=== PATIENT | male | born 2000 | race Caucasian/White ===

== ENCOUNTER 2023-01-15 12:06 | Outpatient (CLI) | payer OTHER, SELFPAY ==
--- NOTE | 2023-01-15 12:25 | ECG_ITS ---
Measurements Intervals [place] Rate: 66 P: 39 VT: 167 QRS: 100 QRSD: 97 T: 51 QT: 373 QTc: 392 Interpretive Statements SINUS RHYTHM BORDERLINE RIGHT AXIS DEVIATION [QRS AXIS > 90] NO PREVIOUS ECG AVAILABLE FOR COMPARISON Electronically Signed On 01-15-2023 13:50:17 CDT by Silvia Subramanian M.D.
== END 2023-01-15 12:07 | disposition home or self-care (01) ==
PROVIDERS: PCP Family Medicine; Visit Provider Physician Assistant Medical
DX: R00.0 Tachycardia, unspecified (principal)
CPT/HCPCS: 93005

== ENCOUNTER 2023-02-18 10:08 | Emergency (ER) | payer OTHER, SELFPAY ==
[2023-02-18 10:18] VITALS: BP 139/73; PULSE 72; RESP 16; TEMP 36.2; O2SAT 99
--- NOTE | 2023-02-18 10:26 | ED.URI ---
HPI - URI/Sore Throat General Chief Complaint: Upper Respiratory Infection Stated Complaint: Headaches;Sore Throat;Stuffy Nose Source: patient and RN notes reviewed History of Present Illness HPI Narrative: 22-year-old male presents to urgent care with complaints sore throat, congestion forehead pressure, and headache. Patient states the symptoms started yesterday but woke up today with worsening symptoms. Patient reports bilateral ear pain. Patient denies any fevers, chills, vomiting, diarrhea, chest pain, or shortness of breath. Patient was seen by ENT 3 days ago where he is being referred to a [facility] specialist for his narrow turbinates. Pt was using Flonase a few weeks ago but nothing recently. Related Data Allergies Allergy/AdvReac Type Severity Reaction Status Date / Time No Known Allergies Allergy Verified 02/18/23 10:27 Review of Systems Review of Systems: Pertinent positives and pertinent negatives per HPI. PMFSH Past Medical History Medical History No known health problems Family History Family History Mother Healthy adult Thyroid disorder Grandparent Alcoholism Asthma Hypertension Depression Anxiety Heart disease Cerebrovascular accident Social History Social History Years smoked: 5 Smoking status: Never smoker Tobacco type: e-cigarettes/vaping Second hand tobacco smoke exposure: Yes Smoking end date: 07/21/22 Alcohol intake: current Drinks per week: 3 Alcohol use details: Beer Substance use: current Substance use type: marijuana Lack of Transportation: No Lack of Food: Never True Current Housing: Decline to Answer Concerned About Future Housing: No Difficulty Paying Gas/Electric Bills: No Difficulty Paying for Meds: No Currently Unemployed: No Education: High School Diploma/GED Difficulty w/ Childcare or Family Care: No Living arrangements: with friend(s) Occupation/Education: occupation Gender identity (if verbalized by the patient): Male Spiritual care concerns: No Agree to blood products: Yes Comments At the time of my signature, I reviewed and agree with the nursing past medical, surgical, social, and family history. There is no relevant family history pertinent to the patient complaint. Exam Narrative: GENERAL: This is a well-nourished, well-developed patient, in no apparent distress. HEAD: normocephalic, atraumatic. EYES: Sclera clear/white. Vision is grossly intact. EARS: External ears normal, auditory canals clear and without drainage, TMs normal without perforation. Hearing grossly intact. NOSE: External nose normal with no obvious nasal discharge, nares without redness, no rhinorrhea. THROAT: Mucous membranes moist, posterior pharynx clear. NECK: Neck supple, non-tender without lymphadenopathy, masses or thyromegaly. CARDIOVASCULAR: Regular rate and rhythm without murmurs, gallops, or rubs. RESPIRATORY: Clear to auscultation. Breath sounds equal bilaterally. No wheezes, rales, or rhonchi. NEURO: awake, alert, and oriented to person, place and time. There were no obvious focal neurologic abnormalities. EXTREMITIES: No clubbing, cyanosis, or edema. No joint tenderness, effusion, or edema noted. BACK: Nontender without deformity or crepitus. No flank tenderness. Course Course Level of Care: Express Care Visit Vital Signs Vital signs: Vital Signs Temperature 97.1 F L 02/18/23 10:18 Pulse Rate 72 02/18/23 10:18 Respiratory Rate 16 02/18/23 10:18 Blood Pressure 139/73 02/18/23 10:18 Pulse Oximetry 99 02/18/23 10:18 Temperature 97.1 F L 02/18/23 10:18 Pulse Rate 72 02/18/23 10:18 Respiratory Rate 16 02/18/23 10:18 Blood Pressure 139/73 02/18/23 10:18 Pulse Oximetry 99 02/18/23 10:18 Reviewed. M
== END 2023-02-18 10:44 | disposition home or self-care (01) ==
PROVIDERS: Emergency Provider Nurse Practitioner Family; PCP Family Medicine
DX: B34.9 Viral infection, unspecified (principal); J02.9 Acute pharyngitis, unspecified; F12.90 Cannabis use, unspecified, uncomplicated
CPT/HCPCS: 87081; 87147; 87880; 99213; G0463

== ENCOUNTER 2024-07-11 10:54 | Emergency (ER) | payer OTHER, SELFPAY ==
[2024-07-11 11:30] VITALS: BP 122/71; PULSE 86; RESP 16; TEMP 36.4; O2SAT 100
--- NOTE | 2024-07-11 12:46 | ED.GENADULT ---
HPI - General Adult General Chief complaint: Skin/Abscess/Foreign Body Stated complaint: Infected Hang Nail Source: patient Mode of arrival: ambulatory Limitations: no limitations History of Present Illness HPI narrative: Patient presents for evaluation of right index finger pain and swelling. Symptom onset three days ago. No precipitating injury. He initially had a hangnail in the affected area. He noted worsening swelling yesterday so attempted to drain the area at that time. He did not express much fluid from the area. Reports throbbing pain in the affected area. No loss of range of motion. He is not diabetic. He does not smoke. He is left-hand dominant. Related Data Allergies Allergy/AdvReac Type Severity Reaction Status Date / Time No Known Allergies Allergy Verified 07/11/24 12:07 Review of Systems Review of Systems: CONSTITUTIONAL: Denies fever, chills, or sweats. EYES: Denies visual changes, redness, or discharge. ENT: Denies rhinorrhea, congestion, sore throat, or otalgia. CARDIOVASCULAR: Denies chest pain, palpitations, or edema. RESPIRATORY: Denies cough or dyspnea. GASTROINTESTINAL: Denies abdominal pain, nausea, vomiting, or diarrhea. GENITOURINARY: Denies dysuria or hematuria. SKIN: Reports redness to the skin surrounding the nail plate of the right index finger. MUSCULOSKELETAL:Reports pain in right index finger. Denies back pain or other joint pain NEUROLOGIC: Denies headache, numbness, dizziness, or weakness. PSYCHIATRIC: Denies anxiety or depression. FORMERLY [facility] Past Medical History Medical History No known health problems Surgical History Surgical History History of nasal surgery Family History Family History Mother Healthy adult Thyroid disorder Grandparent Alcoholism Asthma Hypertension Depression Anxiety Heart disease Cerebrovascular accident Social History Social History Second hand tobacco smoke exposure: Yes Smoking end date: 07/21/22 Alcohol intake: current Drinks per week: 3 Alcohol use details: Beer Substance use: current Substance use type: marijuana Lack of Transportation: No Lack of Food: Never True Current Housing: Decline to Answer Concerned About Future Housing: No Difficulty Paying Gas/Electric Bills: No Difficulty Paying for Meds: No Currently Unemployed: No Education: High School Diploma/GED Difficulty w/ Childcare or Family Care: No Living arrangements: with friend(s) Occupation/Education: occupation Gender identity (if verbalized by the patient): Male Spiritual care concerns: No Agree to blood products: Yes Exam Narrative: GENERAL: Well-appearing, well-nourished, and in no acute distress. HEAD: Normocephalic, atraumatic. EYES: PERRLA and EOMI. ENT: Nares clear, no rhinorrhea or epistaxis. Mucous membranes moist. Oropharynx without tonsillar hypertrophy exudate or other lesions. Bilateral TMs pearly earl nonbulging NECK: Supple. No adenopathy or masses. No carotid bruits or JVD CHEST: Clear to auscultation. No respiratory distress. No wheezes rales or rhonchi HEART: Regular rate and rhythm. No murmur heard. Normal peripheral pulses. ABDOMEN: Soft, nontender, nondistended, normal active bowel sounds. EXTREMITIES: Normal range of motion. there is trace swelling noted to the distal phalanx of the right index finger with associated tenderness SKIN: there is erythema to the skin surrounding the nail plate of the right index finger NEURO: No focal deficits. Alert and oriented x3. PSYCH: Normal mood and affect. Course Course Emergency Course: this is a 23-year-old male who presented for evaluation of and treatment of a paronychia. We discussed risks versus benefits of attempted drainage. He would like to proceed with drainage. area was cleaned and drainage with 18 gauge needle was performed. There is no purulence but there was a small amount of sanguinous drainage. Wound culture obtained. Patient tolerated procedure well. Will discharge with Bactrim and cephalexin. He should perform warm soaks at home. Follow up with primary provider. Go to the ER for worsening symptoms. Pt in agreement with plan of care. Level of Care: Express Care Visit Vital Signs Vital signs: Vital Signs Temperature 36.4 C 07/11/24 11:30 Pulse Rate 86 07/11/24 11:30 Respiratory Rate 16 07/11/24 11:30 Blood Pressure 122/71 07/11/24 11:30 Pulse Oximetry 100 07/11/24 11:30 Temperature 36.4 C 07/11/24 11:30 Pulse Rate 86 07/11/24 11:30 Respiratory Rate 16 07/11/24 11:30 Blood Pressure 122/71 07/11/24 11:30 Pulse Oximetry 100 07/11/24 11:30 Procedures Abscess I/D other: Date of Incision: 07/11/24 Time of Incision: 12:52 Side (if applicable): right Local Anesthetic: lidocaine 1% Amount of anesthesia used (mL): 5 Technique: needle aspiration Amount of fluid expressed (mL): 4 Irrigation: No Packing used?: none Medical Decision Making Vital Signs Vital Signs: Vital Signs Temperature 36.4 C 07/11/24 11:30 Pulse Rate 86 07/11/24 11:30 Respiratory Rate 16 07/11/24 11:30 Blood Pressure 122/71 07/11/24 11:30 Pulse Oximetry 100 07/11/24 11:30 Temperature 36.4 C 07/11/24 11:30 Pulse Rate 86 07/11/24 11:30 Respiratory Rate 16 07/11/24 11:30 Blood Pressure 122/71 07/11/24 11:30 Pulse Oximetry 100 07/11/24 11:30 Discharge Plan Discharge Clinical Impression: Paronychia of right index finger Patient Disposition: Home, Self-Care Condition: Stable Instructions: Antibiotic Form, Paronychia (ED) Patient Language: Fijian Prescriptions: New sulfamethoxazole-trimethoprim [Bactrim DS] 800-160 mg tablet 1 tablet PO Q12H Qty: 20 0RF cephalexin 500 mg capsule 500 mg PO Q6H 10 Days Qty: 40 0RF Follow-up/Referrals: Marcus Otto MD [Physician] - Time of Disposition: 12:45
== END 2024-07-11 12:51 | disposition home or self-care (01) ==
PROVIDERS: Emergency Provider Nurse Practitioner
DX: L03.011 Cellulitis of right finger (principal); Z87.891 Personal history of nicotine dependence; F12.90 Cannabis use, unspecified, uncomplicated
CPT/HCPCS: 10160; 87070; 87075; 87205; 99213; G0463

== ENCOUNTER 2024-09-03 10:21 | Emergency (ER) | payer OTHER, SELFPAY ==
[2024-09-03 10:33] VITALS: BP 144/84; PULSE 94; RESP 16; TEMP 36.7; O2SAT 100
--- NOTE | 2024-09-03 10:39 | ED.URI ---
HPI - URI/Sore Throat General Chief Complaint: Upper Respiratory Infection Stated Complaint: SORE THROAT/SINUS CONGESTION/HEADACHE Time Seen by Provider: 09/03/24 10:39 Source: patient Mode of arrival: ambulatory Limitations: no limitations History of Present Illness HPI Narrative: 23-year-old male presents with complaint of cough, congestion, fatigue, body aches with fever for 4 days. Afebrile for the past 24 hours. Is feeling better. No chest pain or shortness of breath. Needs work note. All systems reviewed and negative except as noted above. Related Data Allergies Allergy/AdvReac Type Severity Reaction Status Date / Time No Known Allergies Allergy Verified 09/03/24 10:34 Review of Systems Review of Systems: CONSTITUTIONAL: Reports fever, chills, or sweats. EYES: Denies visual changes, redness, or discharge. ENT: Reports rhinorrhea, congestion, sore throat. Denies otalgia. CARDIOVASCULAR: Denies chest pain, palpitations, or edema. RESPIRATORY: Reports cough. Denies dyspnea. GASTROINTESTINAL: Denies abdominal pain, nausea, vomiting, or diarrhea. GENITOURINARY: Denies dysuria or hematuria. SKIN: Denies rash or itching. MUSCULOSKELETAL: Denies back pain, joint pain, or myalgia. NEUROLOGIC: Denies headache, numbness, or weakness. PSYCHIATRIC: Denies anxiety or depression. All other systems reviewed are negative, except as documented in HPI. FORMERLY [facility] Past Medical History Medical History No known health problems Surgical History Surgical History History of nasal surgery Family History Family History Mother Healthy adult Thyroid disorder Grandparent Alcoholism Asthma Hypertension Depression Anxiety Heart disease Cerebrovascular accident Social History Social History Second hand tobacco smoke exposure: Yes Smoking end date: 07/21/22 Alcohol intake: current Drinks per week: 3 Alcohol use details: Beer Substance use: current Substance use type: marijuana Lack of Transportation: No Lack of Food: Never True Current Housing: Decline to Answer Concerned About Future Housing: No Difficulty Paying Gas/Electric Bills: No Difficulty Paying for Meds: No Currently Unemployed: No Education: High School Diploma/GED Difficulty w/ Childcare or Family Care: No Living arrangements: with friend(s) Occupation/Education: occupation Gender identity (if verbalized by the patient): Male Spiritual care concerns: No Agree to blood products: Yes Comments At time of signature, agree with nursing past medical, surgical, social and family history. There is no relevant family history pertinent to the presenting complaint. Exam Narrative: GENERAL: This is a well-nourished, well-developed patient, in no apparent distress. HEAD: normocephalic, atraumatic. EYES: PERRL. Sclera clear/white. Vision is grossly intact. EARS: External ears normal, auditory canals clear and without drainage, TMs normal without perforation. Hearing grossly intact. NOSE: External nose normal with nasal drainage, mild congestion THROAT: Mucous membranes moist, posterior pharynx clear. NECK: Neck supple, non-tender without lymphadenopathy, masses or thyromegaly. CARDIOVASCULAR: Regular rate and rhythm without murmurs, gallops, or rubs. RESPIRATORY: Clear to auscultation. Breath sounds equal bilaterally. No wheezes, rales, or rhonchi. SKIN: warm, Dry, intact with no suspicious lesions or rash, good texture and turgor. NEURO: awake, alert, and oriented to person, place and time. There were no obvious focal neurologic abnormalities. EXTREMITIES: No joint tenderness, effusion, or edema noted. Course Course Level of Care: Express Care Visit Vital Signs Vital signs: Vital Signs Temperature 36.7 C 09/03/24 10:33 Pulse Rate 94 09/03/24 10:33 Respiratory Rate 16 09/03/24 10:33 Blood Pressure 144/84 H 09/03/24 10:33 Pulse Oximetry 100 09/03/24 10:33 Temperature 36.7 C 09/03/24 10:33 Pulse Rate 94 09/03/24 10:33 Respiratory Rate 16 09/03/24 10:33 Blood Pressure 144/84 H 09/03/24 10:33 Pulse Oximetry 100 09/03/24 10:33 Reviewed MDM - URI/Sore Throat MDM Narrative Medical decision making narrative: Patient positive for influenza A. Patient is well-appearing, nontoxic. Lungs clear to auscultation. Recommend he continue [id number] medications to treat viral symptoms. Please be advised this is a medical document. It is intended for [id number] communication. It is written in medical language and may contain unfamiliar abbreviations or verbiage. Medical documents are intended to carry relevant information, facts as evident, and the clinical opinion of the practitioner at the time of the encounter. This report may have been done utilizing a voice recognition system. Attempts have been made to correct errors. However, there may be uncorrected grammatical, spelling, and recognition errors present. The file time of this note does not necessarily represent the time of service. Differential Diagnosis Differential diagnosis: Likely upper respiratory infection, sinusitis, viral infection and influenza Discharge Plan Discharge Clinical Impression: Influenza A Patient Disposition: Home, Self-Care Condition: Stable Instructions: Influenza (ED) Additional Instructions: You were positive for influenza today. Influenza is a virus and symptoms may last 10-14 days. Continue taking [id number] medications to treat her symptoms such as DayQuil NyQuil cold and flu. Take as directed on packaging. Take ibuprofen every 6-8 hours as needed for pain and fever. Drink at least 64 oz of water a day. Follow-up with your doctor if symptoms are not improving. Patient Language: Tongan Prescriptions: No Action sulfamethoxazole-trimethoprim [Bactrim DS] 800-160 mg tablet 1 tablet PO Q12H Qty: 20 0RF cephalexin 500 mg capsule 500 mg PO Q6H 10 Days Qty: 40 0RF Follow-up/Referrals: Deysi Enriquez MD [Primary Care Provider] - Stand Alone Forms: Work/School Release IP Time of Disposition: 10:48
[2024-09-03 10:41] LABS: EDCOVIDSCREEN Negative (Negative); EDINFLUASCREEN Positive (Negative); EDINFLUBSCREEN Negative (Negative); EDSTREPNEGPOS1 Negative (Negative)
== END 2024-09-03 10:52 | disposition home or self-care (01) ==
PROVIDERS: Emergency Provider Nurse Practitioner Family; PCP Family Medicine
DX: J10.1 Influenza due to other identified influenza virus with other respiratory manifestations (principal); Z20.822 Contact with and (suspected) exposure to COVID-19
CPT/HCPCS: 87426; 87804; 87880; 99212; G0463